=== PATIENT | male | born 1965 | race Caucasian/White ===

== ENCOUNTER 2018-03-29 22:34 | Inpatient (IN) | payer SELFPAY ==
[2018-03-29] MEDS ORDERED: Ondansetron HCl/PF 4 MG/2 ML Vial ONE (22:47)
[2018-03-29 22:54] LABS: #Eosinphils 0.1 thou/uL (0.0-0.7); #Monocytes 0.4 thou/uL (0.11-0.59); #Neutrophils 3.5 thou/uL (1.40-6.50); %Basophils 0.6 % (0.0-1.0); %Eosinophils 1.8 % (0.0-10.0); %Lymphocytes 42.8 % (21.0-51.0); %Monocytes 5.6 % (0.0-10.0); %Neutrophils 49.3 % (42.0-75.0); Hemoglobin 15.6 g/dL (14.0-18.0); Mean Corpuscular HGB CONC 34.4 g/dL (32.0-36.0); Mean Corpuscular Hemoglobin 32.5 pg (27.0-31.0); Mean Corpuscular Volume 94.5 fL (78.0-98.0); Mean Platelet Volume 6.2 fL (7.4-10.4); Platelet Count 278 thou/uL (130-400); RBC Distribution Width 11.8 % (11.5-14.5); White Blood Cell (WBC) Count 7.1 thou/uL (4.8-10.8)
--- NOTE | 2018-03-29 23:07 | RAD ---
RADIOGRAPH LEFT LEG TIBIA AND FIBULA TWO VIEWS: DATE: 03/29/2018 TIME: 9:54 p.m. HISTORY: A 53-year-old male, status post acute traumatic injury to the left leg. FINDINGS: At the junction between the middle and distal thirds of the tibial diaphysis, there is a nondisplaced , comminuted fracture. There is no fibular fracture. IMPRESSION: Acute, traumatic, closed, nondisplaced, comminuted fracture of the mid-distal tibial shaft. POS: JIN
[2018-03-29 23:15] LABS: ALT (SGPT) 10 U/L (8-55); AST (SGOT) 29 U/L (5-34); Albumin 4.7 g/dL (3.5-5.0); Alkaline Phosphatase 52 U/L (40-150); Anion Gap 13 mmol/L (10-20); BUN (Urea Nitrogen) 10 mg/dL (8.4-25.7); Bilirubin, Total 0.4 mg/dL (0.2-1.2); Calc. Creatinine Clearance 0 mL/min (70-130); Calcium 9.2 mg/dL (7.8-10.44); Carbon Dioxide 26 mmol/L (22-29); Chloride 102 mmol/L (98-107); Estimated GFR-MDRD 77; Globulin 2.6 g/dL (2.4-3.5); Glucose 99 mg/dL (70-105); Potassium 4.2 mmol/L (3.5-5.1); Protein, Total 7.3 g/dL (6.0-8.3); Sodium 137 mmol/L (136-145)
[2018-03-30] MEDS ORDERED: hydrALAZINE 20 MG/ML VIAL SLOW IVP PRN (01:15)
[2018-03-30] MEDS ORDERED: Ondansetron HCl/PF 4 MG/2 ML Vial IVP PRN (01:15)
[2018-03-30] MEDS ORDERED: Ondansetron ODT 4 MG TAB PO PRN (01:15)
[2018-03-30] MEDS ORDERED: Dextrose 5% in Water 1,000 ML IV PRN (01:15)
[2018-03-30] MEDS ORDERED: Dextrose 5 % And 0.9 % NaCl 1,000 ML IV SCH (01:15)
[2018-03-30] MEDS ORDERED: Dextrose 50% Abboject 50 ML SYRINGE SLOW IVP PRN (01:15)
[2018-03-30 01:23] VITALS: BMI 19.3
[2018-03-30] MEDS: Morphine 4 MG/ML VIAL SLOW IVP PRN ×2 (01:34→08:22)
[2018-03-30] MEDS: Sodium Chloride 0.9% 1,000 ML IV SCH ×2 (01:39→10:37)
--- NOTE | 2018-03-30 02:00 | HP ---
DATE OF ADMISSION: 03/30/2018 REQUESTING PHYSICIAN: Dr. Goins. ATTENDING SURGEON: Dr. Collins. CONSULTATIONS: Orthopedics, Dr. Patton. HISTORY OF PRESENT ILLNESS: The patient is a 53-year-old man, who had a few drinks this ev ening when he fell down some stairs, he said probably 3-4 at the bottom of the stairs. He states devon t his left leg had severe pain. He summoned 911 and was brought to the emergency department, [facility], examined and noted to have a nondisplaced tibia fracture, at which time we were asked to admit th e patient and obtain Orthopedic consultation. The patient denies any loss of consciousness. The pat ient also denies any syncopal type symptoms prior to his fall. ALLERGIES: None. CURRENT MEDICATIONS: Symbicort and Proventil. PAST SURGICAL HISTORY: Inguinal hernia repair. FAMILY MEDICAL HISTORY: Hypertension. PAST MEDICAL HISTORY: Asthma. SOCIAL HISTORY: The patient drinks every day. He denies drinking more than 4 or 5 per day. Smokes approximately half pack of cigarettes per day. Denies drug use. 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 REVIEW OF SYSTEMS: A 10-point review of systems is negative, unless otherwise stated. PHYSICAL EXAMINATION: GENERAL: The patient is resting comfortably in the emergency room bed. He is awake, alert, and orie nted x3. HEENT: Head is normocephalic, atraumatic. Eyes, extraocular motion intact, PERRLA bilaterally. Ear s are atraumatic without discharge. Nose is atraumatic without discharge. Oropharynx is clear. NECK: Nontender. Trachea is midline. No JVD. CHEST: Clear to auscultation with good inspiratory and expiratory effort. HEART: Regular rate and rhythm. ABDOMEN: Soft, flat, nontender with active bowel sounds. Pelvis is stable. EXTREMITIES: Left lower extremity is immobilized in a posterior splint. All extremities are neurova scularly intact x4. Capillary refill is less than 3 seconds. BACK: Nontender and atraumatic. LABORATORY DATA: White blood cell count 7.1, hemoglobin 15.6, hematocrit 45.4, platelets 278. Sodiu m 137, potassium 4.2, chloride 102, CO2 of 26, BUN 10, creatinine 1.02. LFTs are unremarkable. RADIOGRAPHS: Two views of the left tibia and fibula show a nondisplaced left mid shaft tibia fractur e. ASSESSMENT AND PLAN: 1. Status post fall. 2. Left closed neurovascularly intact mid shaft tibia fracture. 3. Acute pain secondary to trauma. Plan will be to admit the patient to the surgical floor, make him n.p.o., pain control, pulmonary jessica let, gastritis, mechanical VTE prophylaxis. The patient will likely undergo orthopedic intervention tomorrow. The evaluation and examination will be discussed with Dr. Collins after this dictation.
[2018-03-30] MEDS: Ketorolac Tromethamine 30 MG/ML VIAL IVP SCH ×2 (05:16→12:41)
[2018-03-30] MEDS: Acetaminophen 1,000 MG in Premix Bag 1 BAG IVPB SCH ×2 (05:17→12:40)
[2018-03-30 06:24] LABS: #Basophils 0.1 thou/uL (0.0-0.2); #Eosinphils 0.1 thou/uL (0.0-0.7); #Lymphocytes 2.6 thou/uL (1.20-3.40); #Monocytes 0.6 thou/uL (0.11-0.59); #Neutrophils 5.4 thou/uL (1.40-6.50); %Basophils 0.7 % (0.0-1.0); %Eosinophils 1.6 % (0.0-10.0); %Lymphocytes 29.5 % (21.0-51.0); %Monocytes 6.4 % (0.0-10.0); %Neutrophils 61.8 % (42.0-75.0); Hemoglobin 14.6 g/dL (14.0-18.0); Mean Corpuscular HGB CONC 34.3 g/dL (32.0-36.0); Mean Corpuscular Hemoglobin 32.3 pg (27.0-31.0); Mean Corpuscular Volume 94.2 fL (78.0-98.0); Mean Platelet Volume 6.2 fL (7.4-10.4); Platelet Count 270 thou/uL (130-400); RBC Distribution Width 11.7 % (11.5-14.5); Red Blood Cell (RBC) Count 4.51 mill/uL (4.70-6.10); White Blood Cell (WBC) Count 8.7 thou/uL (4.8-10.8)
[2018-03-30 06:42] LABS: Anion Gap 13 mmol/L (10-20); BUN (Urea Nitrogen) 8 mg/dL (8.4-25.7); Calc. Creatinine Clearance 90 mL/min (70-130); Calcium 8.2 mg/dL (7.8-10.44); Carbon Dioxide 23 mmol/L (22-29); Chloride 108 mmol/L (98-107); Estimated GFR-MDRD Greater than 90; Glucose 89 mg/dL (70-105); Potassium 4.2 mmol/L (3.5-5.1); Sodium 140 mmol/L (136-145)
[2018-03-30] MEDS: Famotidine 20 MG TAB PO SCH ×2 (08:20→08:29)
[2018-03-30] MEDS ORDERED: Fentanyl 100 MCG/2 ML VIAL SLOW IVP SCH (10:15)
--- NOTE | 2018-03-30 12:58 | CON ---
DATE OF CONSULTATION: 03/30/2018 ORTHOPEDIC CONSULTATION REQUESTING PHYSICIAN: Dr. Andrea Posadas. CONSULTING PHYSICIAN: Dr. Meliton Escalera. REASON FOR CONSULTATION: Left mid shaft nondisplaced isolated tibia fracture. BRIEF CLINICAL HISTORY: Stewart is a 53-year-old white male who was admitted to the emergency room by [facility] Trauma team after he fell down some stairs yesterday evening. He was unable to stand and walk. 9 11 was dispatched and the patient was brought to the emergency room where plain radiographs demonstra eloise isolated, nondisplaced mid shaft tibial fracture. He was placed in a trilaminar splint, admitted to the Trauma Service and we were consulted for definitive orthopedic management of this injury. PAST MEDICAL HISTORY: Hypertension. PAST SURGICAL HISTORY: Inguinal hernia repair. SOCIAL HISTORY: He does smoke. He consumes ethanol on a regular basis. He is employed, is a divorc ed male. He denies any illicit drug abuse. PHYSICAL EXAMINATION: Visual inspection of the left lower extremity demonstrates it to be in a poste rior trilaminar splint. He is neurovascularly intact. After removal of splint, he has a little bit of ecchymosis mid shaft directly over the fracture site. Again, no malalignment, varus or valgus def ormity. He has good dorsiflexion, inversion and eversion. He is neurovascularly intact in the left lower extremity distal to the fracture site. IMAGING STUDIES: Mid distal third metaphyseal nondisplaced tibial fracture. IMPRESSION: 1. Left distal metaphyseal tibial fracture, nondisplaced with an intact fibula. 2. Intractable pain. 3. Very low suspicion for development of compartment syndrome due to the fact this is a low energy n ondisplaced fracture. PLAN: 1. His trilaminar splint was taken off and replaced with a simple posterior splint. 2. Physical therapy will crutch train the patient. He is to have strict nonweightbearing on the [facility] t and he is stable for discharge from an orthopedic standpoint. We will see him back in 2-3 weeks.
[2018-03-30] MEDS ORDERED: traMADol HCl 50 MG TAB PO PRN ×2 (14:41)
[2018-03-30] MEDS ORDERED: Ibuprofen 800 MG TAB PO PRN (14:41)
[2018-03-30 15:47] VITALS: BP 151/81; TEMP 98
--- NOTE | 2018-03-30 17:06 | OP ---
DATE OF PROCEDURE: 03/30/2018 PREPROCEDURE DIAGNOSIS: Left mid shaft metaphyseal nondisplaced tibial fracture. POSTPROCEDURE DIAGNOSIS: Left mid shaft metaphyseal nondisplaced tibial fracture. BEDSIDE PROCEDURE: Closed management with posterior splint placement left leg, left short leg splint . SURGEON: Jan Andino PA-C. ANESTHESIA: Fentanyl 100 mcg IV. PROCEDURE IN DETAIL: The patient was positioned appropriately and the left lower extremity was then raised and elevated. Knee was flexed to 90 degrees as was the ankle. The leg was then fully draped in a stockinette all the way up past the kneecap and past the toes. This was overwrapped with Webril , and a posterior single laminar fiberglass splint was placed. This was overwrapped with Kameron bandage s and allowed to cure with the ankle at 90 degrees and his knee at 90 degrees without any contact. N o was placed. The procedure was terminated without any complications. The patient will be kep t nonweightbearing.
[2018-03-30] MEDS ORDERED: Acetaminophen 500 MG TAB PO SCH (18:00)
== END 2018-03-30 18:10 | disposition home or self-care (01) | DRG 563 ==
LOC: ERS 22:34 → SURG A 03-30 01:08
PROVIDERS: ADMIT Surgery; ATTEND Surgery
PROC: 0QSHXZZ Reposition Left Tibia, External Approach (ICD-10-PCS; principal; 2018-03-30)
DX: S82.202A Unspecified fracture of shaft of left tibia, initial encounter for closed fracture (principal); W10.9XXA Fall (on) (from) unspecified stairs and steps, initial encounter; J45.909 Unspecified asthma, uncomplicated
CPT/HCPCS: 36415; 80048; 80053; 85025; 90471; 90732; A4216; G0009; G8978-GP-CL; G8979-GP-CK; G8987-GO-CJ; G8988-GO-CJ; G8989-GO-CJ; J0131; J1885; J2270; J2405; J3010